=== PATIENT | male | born 1990 ===

== ENCOUNTER 2018-04-08 06:33 | Emergency (ER) | payer OTHER ==
[~2018-04-08] VITALS: Ht 170.2 cm; Wt 58.5 kg
== END 2018-04-08 12:24 | disposition home or self-care (01) ==
LOC: ER 06:33
DX: F32.9 Major depressive disorder, single episode, unspecified (principal); R45.851 Suicidal ideations

== ENCOUNTER 2023-04-07 13:26 | Emergency (ER) | payer OTHER ==
[~2023-04-07] VITALS: Ht 170.2 cm; Wt 66.7 kg
== END 2023-04-07 16:34 | disposition home or self-care (01) ==
LOC: ER 13:26
DX: S39.012A Strain of muscle, fascia and tendon of lower back, initial encounter (principal)

== ENCOUNTER → 2023-10-10 | Emergency (ER) | payer OTHER ==
[~2023-10-10] VITALS: Ht 165.1 cm; Wt 63.5 kg
[2023-10-10 20:44] LABS: HEMATOCRIT 43.7 % (39.0-48.0); HEMOGLOBIN 14.6 g/dL (13-16.00); MEAN CELL VOLUME 83.4 fL (80.0-100.00); MEAN CORPUSCULAR HEMOGLOBIN 27.9 pg (27.00-32.0); MEAN CORPUSCULAR HGB CONC 33.5 g/dl (32.0-36.0); PLATELET COUNT 264 K/uL (150-450); RED BLOOD COUNT 5.23 M/uL (4.00-6.00); RED CELL DISTRIBUTION WIDTH 14.4 % (11.5-14.5)
== END | disposition left against medical advice (07) ==
LOC: ER 18:16
PROVIDERS: General Practice
DX: L30.9 Dermatitis, unspecified (principal); R21 Rash and other nonspecific skin eruption